=== PATIENT | male | born 1940 | race Caucasian/White ===

== ENCOUNTER 2019-05-23 05:45 | Day surgery (SDC) | payer MEDICARE ==
[~2019-05-23] VITALS: Ht 175.3 cm; Wt 70.4 kg
[~2019-05-23 05:45] MED LIST: AMLO10TA8 PO; ASPI-496 PO; CHOL20002 PO; GABA300C10 PO; HYDR25TA6 PO; MELO7.5T31 PO; METH750T2 PO; MULT-257 PO; OXYC5CAP2 PO; POLY17PO5 PO; POLY1DRO OP; TAMS-11 PO
[2019-05-23] MEDS ORDERED: OFLOXACIN EAR DROPS 0.3%, 5ML ONE (06:27)
[2019-05-23] MEDS ORDERED: ATOR40TA78 PO (06:47)
[2019-05-23] MEDS ORDERED: CEFD300C37 PO (06:47)
[2019-05-23] MEDS ORDERED: OMEP-110 PO (06:47)
[2019-05-23] MEDS ORDERED: GABA400C PO (06:47)
[2019-05-23] MEDS ORDERED: ACET-1600 PO (06:47)
[2019-05-23] MEDS ORDERED: VIT1TABL32 PO (06:47)
[2019-05-23] MEDS ORDERED: MELO15TA24 PO (06:47)
[2019-05-23] MEDS ORDERED: AMLO-150 PO (06:47)
[2019-05-23 06:49] VITALS: BP 153/81
[2019-05-23] MEDS ORDERED: ASCO500T8 PO (06:49)
[2019-05-23] MEDS ORDERED: POLY17PO5 PO (06:53)
[2019-05-23] MEDS ORDERED: LACTATED RINGERS 1,000 ML IV SCH (07:05)
[2019-05-23] MEDS ORDERED: CIPROFLOXACIN/HYDROCORTISONE EAR SUSP 0.2-1%, 10ML ONE (07:09)
[2019-05-23] MEDS ORDERED: PROPOFOL 50 ML ONE (07:23)
[2019-05-23] MEDS ORDERED: EPINEPHRINE TOPICAL SOLN 1 MG/ML, 30ML ONE (07:37)
[2019-05-23] MEDS ORDERED: FENTANYL PF 100 MCG/2ML ONE (07:41)
[2019-05-23] MEDS ORDERED: PROPOFOL 10 MG/ML, 20ML ONE (07:47)
[2019-05-23] MEDS ORDERED: ONDANSETRON ODT 8 MG PO PRN (08:00)
[2019-05-23] MEDS ORDERED: ONDANSETRON 2MG/ML, 2ML IV PRN (08:00)
[2019-05-23] MEDS ORDERED: FENTANYL PF 100 MCG/2ML IV PRN (08:00)
[2019-05-23] MEDS ORDERED: OXYcodone 5 MG/5 ML ORAL.SOL UDC PO PRN (08:00)
[2019-05-23] MEDS ORDERED: ACETAMINOPHEN 325 MG TABLET PO PRN (08:00)
[2019-05-23] MEDS ORDERED: ACETAMINOPHEN 650 MG/20.3 ML UDC ONE (08:12)
== END 2019-05-23 09:23 | disposition home or self-care (01) ==
LOC: OUT 05:45
PROVIDERS: ATTEND Specialist
DX: H61.23 Impacted cerumen, bilateral (principal); H60.8X3 Other otitis externa, bilateral; G83.4 Cauda equina syndrome; Z98.890 Other specified postprocedural states
CPT/HCPCS: 69222; 93005; J2704; J3010; J7120